=== PATIENT | male | born 1965 | race Caucasian/White ===

== ENCOUNTER 2018-06-19 08:07 | Emergency (ER) | payer BC, OTHER, SELFPAY ==
[2018-06-19 08:31] LABS: Bilirubin Negative (Negative); Blood, Urine Negative (Negative); Clarity Clear (Clear); Glucose, Urine (Dipstick) Negative (Negative); Leukocyte Negative (Negative); Nitrite Negative (Negative); Protein, Urine (Dipstick) Negative (Neg-Trace); Urobilinogen 0.2 mg/dL (0.2-1.0); pH, Urine 5.5 (5.0-9.0)
[2018-06-19] MEDS ORDERED: Cyclobenzaprine 10 MG TAB ONE (09:23)
[2018-06-19] MEDS ORDERED: HYDROcodone/Acetaminophen 5/325 mg Tablet ONE (09:23)
[2018-06-19] MEDS ORDERED: Acetaminophen 325 MG TAB ONE (09:23)
--- NOTE | 2018-06-19 10:28 | CT ---
NONCONTRAST CT ABDOMEN AND PELVIS: INDICATIONS: History of abdominal pain. COMPARISON: None. FINDINGS: The lung bases are clear. The spleen is mildly enlarged, measuring 15.2 cm. There are calcified granuloma within the spleen. A small stone is seen within the fundus of the gallbladder. Unopacified liver is unremarkable. Unop acified pancreas and adrenal glands are unremarkable. No definite renal or ureteral calculus is evid ent. Unopacified kidneys are unremarkable. There are mild vascular calcifications involving the dis arabella abdominal aorta and iliac vessels. The bladder is partially decompressed. There are some scatte red diverticula involving the colon without evidence of active diverticulitis. The small bowel is of normal caliber. There is a normal appendix in the right lower quadrant. No free fluid is evident. No acute osseous abnormality is evident. There is scattered degenerative and osteoarthritic change. There are numerous surgical clips seen within the right medial paraspinal region. There are laminec nicolás changes seen on the right at T11. IMPRESSION: 1. Mild nonspecific splenomegaly. 2. Cholelithiasis. 3. Colonic diverticulosis. 4. Mild vascular calcification of the abdominal and pelvic vasculature. 5. Postoperative change of the lower thoracic spine. POS: [facility]
== END 2018-06-19 09:35 | disposition home or self-care (01) ==
LOC: MADERS 08:07
DX: S39.012A Strain of muscle, fascia and tendon of lower back, initial encounter (principal); E11.9 Type 2 diabetes mellitus without complications; I10 Essential (primary) hypertension; E78.5 Hyperlipidemia, unspecified; Z86.73 Personal history of transient ischemic attack (TIA), and cerebral infarction without residual deficits; F17.210 Nicotine dependence, cigarettes, uncomplicated; Z79.899 Other long term (current) drug therapy; Z79.84 Long term (current) use of oral hypoglycemic drugs; Z79.82 Long term (current) use of aspirin; X58.XXXA Exposure to other specified factors, initial encounter
CPT/HCPCS: 74176; 81003; 87086

== ENCOUNTER 2018-12-03 22:12 | Emergency (ER) | payer SELFPAY ==
[2018-12-03 23:04] LABS: #Basophils 0.1 thou/uL (0.0-0.2); #Eosinphils 0.2 thou/uL (0.0-0.7); #Monocytes 0.4 thou/uL (0.11-0.59); %Basophils 1.5 % (0.0-1.0); %Eosinophils 2.7 % (0.0-10.0); %Lymphocytes 35.7 % (21.0-51.0); %Monocytes 7.8 % (0.0-10.0); %Neutrophils 52.3 % (42.0-75.0); Hemoglobin 13.7 g/dL (14.0-18.0); Mean Corpuscular HGB CONC 32.4 g/dL (32.0-36.0); Mean Corpuscular Hemoglobin 26.5 pg (27.0-31.0); Mean Corpuscular Volume 81.7 fL (78.0-98.0); Mean Platelet Volume 6.8 fL (7.4-10.4); Platelet Count 162 thou/uL (130-400); RBC Distribution Width 12.4 % (11.5-14.5); Red Blood Cell (RBC) Count 5.19 mill/uL (4.70-6.10); White Blood Cell (WBC) Count 5.7 thou/uL (4.8-10.8)
[2018-12-03] MEDS ORDERED: Aspirin Chewable 81 MG TAB ONE (23:05)
[2018-12-03] MEDS ORDERED: Nitroglycerin 2% Ointment 1 INCH/1 GM Packet ONE (23:05)
[2018-12-03 23:21] LABS: ALT (SGPT) 32 U/L (8-55); AST (SGOT) 26 U/L (5-34); Albumin 4.7 g/dL (3.5-5.0); Alkaline Phosphatase 76 U/L (40-150); Anion Gap 13 mmol/L (10-20); BUN (Urea Nitrogen) 16 mg/dL (8.4-25.7); Bilirubin, Total 0.5 mg/dL (0.2-1.2); Calc. Creatinine Clearance 0 mL/min (70-130); Calcium 10.1 mg/dL (7.8-10.44); Carbon Dioxide 27 mmol/L (22-29); Chloride 104 mmol/L (98-107); Estimated GFR-MDRD 64; Globulin 2.6 g/dL (2.4-3.5); Glucose 110 mg/dL (70-105); Potassium 4.1 mmol/L (3.5-5.1); Protein, Total 7.3 g/dL (6.0-8.3); Sodium 140 mmol/L (136-145)
--- NOTE | 2018-12-03 23:25 | RAD ---
EXAM: Two views chest PROVIDED CLINICAL HISTORY: None COMPARISON: 12/26/2010 FINDINGS: Cardiac silhouette and pulmonary vasculature are within normal limits. The lungs are clear. The osse ous structures have a normal appearance. Surgical clips are again seen overlying the medial aspect of the lower right chest and mediastinum posteriorly. IMPRESSION: No acute cardiopulmonary process.
== END 2018-12-03 23:55 | disposition left against medical advice (07) ==
LOC: MADERS 22:12
DX: I20.0 Unstable angina (principal); I10 Essential (primary) hypertension; F17.210 Nicotine dependence, cigarettes, uncomplicated; Z86.73 Personal history of transient ischemic attack (TIA), and cerebral infarction without residual deficits; E78.5 Hyperlipidemia, unspecified; E11.9 Type 2 diabetes mellitus without complications; Z79.899 Other long term (current) drug therapy; Z79.84 Long term (current) use of oral hypoglycemic drugs
CPT/HCPCS: 36415; 71046; 80053; 83880; 84484; 85025; 93005

== ENCOUNTER 2019-07-24 07:56 | Emergency (ER) | payer SELFPAY ==
[2019-07-24 08:29] LABS: Bilirubin Negative (Negative); Blood, Urine Trace (Negative); Clarity Clear (Clear); Glucose, Urine (Dipstick) >=1000 mg/dL (Negative); Leukocyte Negative (Negative); Nitrite Negative (Negative); Protein, Urine (Dipstick) 30 mg/dL (Neg-Trace); Urobilinogen 0.2 mg/dL (Less than 2)
[2019-07-24 08:42] LABS: Bacteria/HPF Rare-Few HPF (None Seen); RBC/HPF 0-3 HPF (0-3); Squamous Epithelial 0-3 HPF (0-3); WBC/HPF 0-3 HPF (0-3)
[2019-07-24 08:50] LABS: #Basophils 0.1 thou/uL (0.0-0.2); #Eosinphils 0.2 thou/uL (0.0-0.7); #Lymphocytes 1.7 thou/uL (1.20-3.40); #Monocytes 0.6 thou/uL (0.11-0.59); #Neutrophils 6.1 thou/uL (1.40-6.50); %Basophils 1.6 % (0.0-1.0); %Eosinophils 2.1 % (0.0-10.0); %Lymphocytes 19.4 % (21.0-51.0); %Monocytes 6.5 % (0.0-10.0); %Neutrophils 70.3 % (42.0-75.0); Hemoglobin 15.3 g/dL (14.0-18.0); Mean Corpuscular HGB CONC 30.6 g/dL (32.0-36.0); Mean Corpuscular Hemoglobin 25.8 pg (27.0-31.0); Mean Corpuscular Volume 84.1 fL (78.0-98.0); Mean Platelet Volume 8.3 fL (7.4-10.4); Platelet Count 191 thou/uL (130-400); RBC Distribution Width 11.8 % (11.5-14.5); Red Blood Cell (RBC) Count 5.95 mill/uL (4.70-6.10); White Blood Cell (WBC) Count 8.7 thou/uL (4.8-10.8)
[2019-07-24 09:07] LABS: ALT (SGPT) 33 U/L (8-55); AST (SGOT) 25 U/L (5-34); Albumin 4.8 g/dL (3.5-5.0); Alkaline Phosphatase 84 U/L (40-110); Anion Gap 15 mmol/L (10-20); BUN (Urea Nitrogen) 19 mg/dL (8.4-25.7); Bilirubin, Total 0.7 mg/dL (0.2-1.2); Calc. Creatinine Clearance 0 mL/min (70-130); Calcium 9.9 mg/dL (7.8-10.44); Carbon Dioxide 25 mmol/L (22-29); Chloride 104 mmol/L (98-107); Estimated GFR-MDRD 50; Globulin 2.7 g/dL (2.4-3.5); Glucose 248 mg/dL (70-105); Potassium 4.5 mmol/L (3.5-5.1); Protein, Total 7.5 g/dL (6.0-8.3); Sodium 139 mmol/L (136-145)
--- NOTE | 2019-07-24 09:40 | CT ---
CT ABDOMEN AND PELVIS WITHOUT CONTRAST: Date: 07/24/2019 COMPARISON: 06/19/18. HISTORY: Intermittent left flank pain for 2 months. TECHNIQUE: Multiple contiguous axial images were obtained in a CT of the abdomen and pelvis without contrast. Sa gittal and coronal reformats were performed. FINDINGS: Calcifications are seen in the liver and spleen from prior granulomatous disease. The gallbladder, ki dneys, adrenal glands, and pancreas are unremarkable, although evaluation is limited without IV contr ast. No calcifications are seen in either kidney or ureter. There is scattered diverticula in the colon. The small bowel is unremarkable. The appendix is normal. No abdominal or pelvic lymphadenopathy seen. Atherosclerotic calcifications are seen in the aorta. Degenerative changes and postsurgical changes are seen in the spine. The visualized inferior thorax a nd abdominal wall soft tissues are unremarkable. IMPRESSION: No evidence of acute intra-abdominal/pelvic abnormality. POS: [facility]
== END 2019-07-24 10:04 | disposition home or self-care (01) ==
LOC: MADERS 07:56
DX: R10.9 Unspecified abdominal pain (principal); N28.9 Disorder of kidney and ureter, unspecified; I10 Essential (primary) hypertension; E11.9 Type 2 diabetes mellitus without complications; E78.5 Hyperlipidemia, unspecified; Z86.73 Personal history of transient ischemic attack (TIA), and cerebral infarction without residual deficits; F17.210 Nicotine dependence, cigarettes, uncomplicated; Z79.84 Long term (current) use of oral hypoglycemic drugs; Z79.899 Other long term (current) drug therapy
CPT/HCPCS: 36416; 74176; 80053; 81003; 81015; 85025

== ENCOUNTER 2020-08-10 14:57 | Emergency (ER) | payer BC ==
[2020-08-10] MEDS ORDERED: predniSONE 20 MG TAB ONE (15:32)
[2020-08-10] MEDS ORDERED: traMADol HCl 50 MG TAB ONE (15:32)
[2020-08-10] MEDS ORDERED: Cyclobenzaprine 10 MG TAB ONE (15:32)
[2020-08-10] MEDS ORDERED: Ketorolac Tromethamine 60 MG/2 ML VIAL ONE (15:33)
== END 2020-08-10 15:55 | disposition home or self-care (01) ==
LOC: MADERS 14:57
DX: M25.512 Pain in left shoulder (principal); E11.9 Type 2 diabetes mellitus without complications; E78.5 Hyperlipidemia, unspecified; I10 Essential (primary) hypertension; Z86.73 Personal history of transient ischemic attack (TIA), and cerebral infarction without residual deficits; F17.220 Nicotine dependence, chewing tobacco, uncomplicated; Z79.4 Long term (current) use of insulin; Z79.899 Other long term (current) drug therapy
CPT/HCPCS: 96372; 99283; J1885; J7512

== ENCOUNTER 2020-10-06 08:15 | Emergency (ER) | payer BC ==
[2020-10-06] MEDS ORDERED: Doxycycline 100 MG CAP ONE (08:40)
[2020-10-06] MEDS ORDERED: Cephalexin 500 MG CAP ONE (08:41)
== END 2020-10-06 09:50 | disposition home or self-care (01) ==
LOC: MADERS 08:15
DX: L02.511 Cutaneous abscess of right hand (principal); E11.9 Type 2 diabetes mellitus without complications; I10 Essential (primary) hypertension; F17.220 Nicotine dependence, chewing tobacco, uncomplicated; Z79.4 Long term (current) use of insulin; Z79.899 Other long term (current) drug therapy
CPT/HCPCS: 99283

== ENCOUNTER 2021-04-14 14:38 | Emergency (ER) | payer BC, OTHER | END 2021-04-14 14:55 | disposition left against medical advice (07) | LOC: MADERS 14:38 | DX: Z53.21 Procedure and treatment not carried out due to patient leaving prior to being seen by health care provider (principal) ==

== ENCOUNTER 2023-05-31 19:23 | Emergency (ER) | payer OTHER, SELFPAY ==
[2023-05-31 20:54] LABS: #Basophils 0.1 thou/uL (0.0-0.2); #Eosinphils 0.2 thou/uL (0.0-0.7); #Monocytes 0.5 thou/uL (0.11-0.59); %Basophils 1.3 % (0.0-1.0); %Eosinophils 2.5 % (0.0-10.0); %Lymphocytes 22.4 % (21.0-51.0); %Neutrophils 67.8 % (42.0-75.0); Hematocrit 51.2 % (42.0-52.0); Hemoglobin 16.3 g/dL (14.0-18.0); Mean Corpuscular HGB CONC 31.8 g/dL (32.0-36.0); Mean Corpuscular Hemoglobin 25.9 pg (27.0-31.0); Mean Corpuscular Volume 81.4 fl (78.0-98.0); Mean Platelet Volume 9.2 fL (7.4-10.4); Platelet Count 161 10x3/uL (130-400); RBC Distribution Width 13.4 % (11.5-14.5); Red Blood Cell (RBC) Count 6.29 mill/uL (4.70-6.10); White Blood Cell (WBC) Count 8.8 10x3/uL (4.8-10.8)
[2023-05-31 21:04] LABS: Base Excess-Venous -0.1 mmol/L (-2.0 to 3.0); Bicarbonate (HCO3v) 24.8 mmol/L (22.0-28.0); CO2 Tension (PvCO2) 40.5 mmHg (42.0-51.0); Calcium, Ionized 1.15 mmol/L (1.15-1.33); Chloride 101 mmol/L (98-107); Hemoglobin - Calc 18.1 g/dL (14.0-18.0); Potassium 3.9 mmol/L (3.5-5.1); Sodium 138 mmol/L (138-145); vO2 Saturation-calc 78.4 % (60.0-85.0)
[2023-05-31 21:08] LABS: ALT (SGPT) 22 U/L (8-55); AST (SGOT) 19 U/L (5-34); Albumin 4.3 g/dL (3.5-5.0); Alkaline Phosphatase 140 U/L (40-110); Anion Gap 17 mmol/L (10-20); BUN (Urea Nitrogen) 14 mg/dL (8.4-25.7); Bilirubin, Total 0.8 mg/dL (0.2-1.2); Calc. Creatinine Clearance 0 mL/min (70-130); Calcium 9.7 mg/dL (7.8-10.44); Carbon Dioxide 23 mmol/L (22-29); Chloride 100 mmol/L (98-107); Estimated GFR 54; Globulin 2.6 g/dL (2.4-3.5); Protein, Total 6.9 g/dL (6.0-8.3); Sodium 136 mmol/L (136-145)
[2023-05-31 21:18] LABS: Glucose 489 mg/dL (70-105)
[2023-05-31] MEDS ORDERED: Sodium Chloride 0.9% 1,000 ML ONE ×2 (21:39→23:47)
[2023-05-31] MEDS ORDERED: Insulin Regular 300 UNITS/3 ML VIAL ONE ×2 (21:39→23:25)
[2023-05-31 22:37] LABS: Bilirubin Negative (Negative); Blood, Urine Trace (Negative); CAUTI Indications for Culture Dysuria,urgency,freq; Clarity Clear (Clear); Glucose, Urine (Dipstick) 500 mg/dL (Negative); Ketone, Urine Negative (Negative); Leukocyte Negative (Negative); Nitrite Negative (Negative); Protein, Urine (Dipstick) > or equal to 300 mg/dL (Neg-Trace); RBC/HPF 0-3 HPF (0-3); Specific Gravity, Urine 1.015 (1.005-1.030); Squamous Epithelial 0-3 HPF (0-3); Urobilinogen 0.2 mg/dL (Less than 2); WBC/HPF 0-3 HPF (0-3); pH, Urine 5.5 (5.0-9.0)
[2023-05-31 22:38] LABS: Urine Culture Reflex No No
[2023-05-31] MEDS ORDERED: Ketorolac Tromethamine 30 MG/ML VIAL ONE (23:25)
[2023-06-01] MEDS ORDERED: Lisinopril 10 MG TAB ONE (00:11)
[2023-06-01] MEDS ORDERED: NIFEdipine XL 30 MG ER.TAB PO SCH (00:30)
== END 2023-06-01 00:58 | disposition home or self-care (01) ==
LOC: MADERS 19:23
DX: M51.36 Other intervertebral disc degeneration, lumbar region (principal); I10 Essential (primary) hypertension; E11.65 Type 2 diabetes mellitus with hyperglycemia; E78.5 Hyperlipidemia, unspecified; Z87.891 Personal history of nicotine dependence; Z79.84 Long term (current) use of oral hypoglycemic drugs; Z79.4 Long term (current) use of insulin; Z79.899 Other long term (current) drug therapy
CPT/HCPCS: 36415; 36416; 72131; 80053; 81001; 82010; 82330; 82803; 85025; 96361; 96374; 96375; J1815; J1885; J7050